=== PATIENT | female | born 1995 | race Caucasian/White ===

== ENCOUNTER 2018-01-24 04:54 | Emergency (ER) | payer BC ==
[~2018-01-24] VITALS: Ht 152.4 cm; Wt 76.8 kg
[2018-01-24 05:00] VITALS: TEMP 99.1
[2018-01-24] MEDS ORDERED: MAGIC MOUTH PO (06:55)
[2018-01-24 07:50] VITALS: BP 153/88; PULSE 110
== END 2018-01-24 07:55 | disposition home or self-care (01) ==
LOC: COL.ER 04:54
DX: J02.9 Acute pharyngitis, unspecified (principal); Z88.2 Allergy status to sulfonamides
CPT/HCPCS: J0561; J1100